=== PATIENT | female | born 1985 | race Caucasian/White ===

== ENCOUNTER 2016-12-20 08:33 | Emergency (ER) | payer OTHER ==
[2016-12-20 09:11] VITALS: BP 131/75
[2016-12-20] MEDS ORDERED: HYDR-971 PO (09:16)
[2016-12-20] MEDS ORDERED: CLIN150C14 PO (09:16)
[2016-12-20] MEDS ORDERED: NAPR500T8 PO (09:16)
--- NOTE | 2016-12-20 09:17 | PHYS DOC ---
Past Medical History Past Medical History: No Pertinent History Past Surgical History: Cholecystectomy Alcohol Use: None Drug Use: None Adult General Chief Complaint Chief Complaint: BREAST PROBLEM HPI HPI Patient is a 31 year old female with a history of breast infections who presents today complaining of right breast infection that began 2 weeks ago. Patient states she just had a baby 2 months ago and is not breast-feeding. Patient states she's had multiple right breast infections before. She states she had an infection to the right breast before she was , during her , and right now 2 months after delivery. She states she used to follow- up with her primary care doctor in [place] but now lives in the [facility] and does not have a PCP. Patient denies any fever. Denies any drainage from the breast. Patient states her mother has history of breast cancer. She states that mother was treated successfully for breast cancer. The mother from "other things." Review of Systems Review of Systems Constitutional: Denies fever or chills [] Musculoskeletal: Denies back pain or joint pain [] Integument: Right breast infection Neurologic: Denies headache, focal weakness or sensory changes [] Allergies Allergies Allergies Coded Allergies Type Severity Reaction Last Updated Verified iodine Allergy Intermediate 03/29/15 Yes morphine Allergy Intermediate Hives 03/29/15 Yes Physical Exam Physical Exam Constitutional: Well developed, well nourished, no acute distress, non-toxic appearance. [] Skin: Both breasts are equal in size, right breast feels tender around the areola. There is a palpable mass around the right areola at approximately 12 o' clock position. This redness around the right areola. The breast feels warm and is very tender to the touch, no fluctuance. No nipple drainage. Back: No tenderness, no CVA tenderness. [] Extremities: No tenderness, no cyanosis, no clubbing, ROM intact, no edema. [] Neurologic: Alert and oriented X 3, normal motor function, normal sensory function, no focal deficits noted. [] Psychologic: Affect normal, judgement normal, mood normal. [] EKG EKG [] Radiology/Procedures Radiology/Procedures [] Course & Med Decision Making Course & Med Decision Making Pertinent Labs and Imaging studies reviewed. (See chart for details) Patient is in the ED with right breast infection that began 2 weeks ago, she just had a baby 2 months ago and is not breast-feeding. She states she's had multiple breast infections prior to her , during and now. She is from [place]. Patient was started on clindamycin, tetanus is up to date. She was provided instructions to apply warm compresses to her breast. Patient was provided an OB/ [facility] as well as a general surgeon for follow-up with. I provided a list of doctors for follow-up. She is provided return precautions and discharged in stable condition. Dragon Disclaimer Dragon Disclaimer This electronic medical record was generated, in whole or in part, using a voice recognition dictation system. Departure Departure Impression: Primary Impression: Infection of right breast Disposition: HOME, SELF-CARE Condition: STABLE Referrals: NO PCP (PCP) GA WRIGHT MD follow up in one week HEMAL HORN MD follow in one week Patient Instructions: Mastitis, [id number] Additional Instructions: You were seen with right breast infection. Apply warm compresses 3 times to the breast. Complete the prescribed antibiotics. Follow-up with the [facility] provided if you don't have one as well as a general surgeon provided. We also provided you a list of primary care doctors establish care with them and follow-up in the next 7 days. Scripts Naproxen (NAPROXEN) 500 Mg Tablet. 1 TAB PO BID, #30 TAB 0 Refills Prov: PEDRO GROVE APRN 12/20/16 Hydrocodone/Apap 5-325 (NORCO 5-325 TABLET) 1 Each Tablet 1-2 TAB PO Q4-6HRS, #20 TAB Prov: PEDRO GROVE APRN 12/20/16 Clindamycin Hcl (CLINDAMYCIN HCL) 150 Mg Capsule 3 CAP PO TID, #90 CAP Prov: PEDRO GROVE APRN 12/20/16 PEDRO GROVE APRN Dec 20, 2016 09:16
== END 2016-12-20 09:30 | disposition home or self-care (01) ==
LOC: ER 08:33
DX: N61.0 Mastitis without abscess (principal); Z88.5 Allergy status to narcotic agent; Z91.041 Radiographic dye allergy status
CPT/HCPCS: 99283

== ENCOUNTER 2017-04-06 18:36 | Inpatient (IN) | payer OTHER ==
[2017-04-06 18:51] LABS: URINE HCG POC HCG POSITIVE (Negative)
[2017-04-06 19:13] LABS: BILIRUBIN,URINE NEGATIVE (NEG); CLARITY,URINE CLEAR; COLOR,URINE YELLOW; GLUCOSE,URINE NEGATIVE (NEG); NITRITE,URINE NEGATIVE (NEG); PH,URINE 5.5; PROTEIN,URINE NEGATIVE (NEG-TRACE)
[2017-04-06 19:19] LABS: BACTERIA,URINE MODERATE /HPF (0-FEW); RBC,URINE 0 /HPF (0-2); SQUAMOUS EPITHELIAL CELL,UR MANY /LPF
[2017-04-06 19:32] LABS: ADD MAN DIFF? NO
[2017-04-06 19:33] LABS: BASO % 0 % (0-3); EOS # 0.1 x10^3/uL (0.0-0.7); EOS % 1 % (0-3); HEMATOCRIT 41.6 % (36.0-47.0); LYMPH # 4.3 x10^3/uL (1.0-4.8); LYMPH % 31 % (24-48); MEAN CORPUSCULAR HEMOGLOBIN 33 pg (25-35); MEAN CORPUSCULAR HGB CONC 34 g/dL (31-37); MEAN CORPUSCULAR VOLUME 99 fL (79-100); MONO % 7 % (0-9); NEUT # 8.6 x10^3uL (1.8-7.7); NEUT % 61 % (31-73); PLATELET COUNT 297 x10^3/uL (140-400); RED CELL DISTRIBUTION WIDTH 13.7 % (11.5-14.5); WHITE BLOOD COUNT 14.1 x10^3/uL (4.0-11.0)
[2017-04-06 19:46] LABS: ANION GAP 13 (6-14); BLOOD UREA NITROGEN 17 mg/dL (7-20); BUN/CREATININE RATIO 21 (6-20); CALCIUM 9.1 mg/dL (8.5-10.1); CARBON DIOXIDE 25 mmol/L (21-32); CHLORIDE 103 mmol/L (98-107); CREATININE 0.8 mg/dL (0.6-1.0); GFR 84.8; GLUCOSE 88 mg/dL (70-99); POTASSIUM 3.7 mmol/L (3.5-5.1); SODIUM 141 mmol/L (136-145)
[2017-04-06 19:53] LABS: ALBUMIN 4.1 g/dL (3.4-5.0); ALBUMIN/GLOBULIN RATIO 1.4 (1.0-1.7); ALK PHOS 45 U/L (46-116); ALT (SGPT) 59 U/L (14-59); AST (SGOT) 32 U/L (15-37); TOTAL BILIRUBIN 0.3 mg/dL (0.2-1.0); TOTAL PROTEIN 7.1 g/dL (6.4-8.2)
[2017-04-06] MEDS ORDERED: ONDANSETRON PF 4 MG/2 ML VIAL. IV (21:00)
[2017-04-06] MEDS ORDERED: fentaNYL PF VIAL 100 MCG/2 ML VIAL IV (21:00)
[2017-04-06] MEDS: IV NORMAL SALINE 1000ML BAG 1,000 ML IV (21:04)
[2017-04-07 04:59] LABS: ADD MAN DIFF? NO
[2017-04-07 05:05] LABS: BASO % 0 % (0-3); EOS # 0.1 x10^3/uL (0.0-0.7); EOS % 1 % (0-3); HEMATOCRIT 38.5 % (36.0-47.0); HEMOGLOBIN 12.9 g/dL (12.0-15.5); LYMPH # 3.8 x10^3/uL (1.0-4.8); LYMPH % 42 % (24-48); MEAN CORPUSCULAR HEMOGLOBIN 33 pg (25-35); MEAN CORPUSCULAR HGB CONC 33 g/dL (31-37); MEAN CORPUSCULAR VOLUME 100 fL (79-100); MONO # 0.7 x10^3/uL (0.0-1.1); MONO % 8 % (0-9); NEUT # 4.5 x10^3uL (1.8-7.7); NEUT % 49 % (31-73); PLATELET COUNT 265 x10^3/uL (140-400); RED BLOOD COUNT 3.85 x10^6/uL (3.50-5.40); RED CELL DISTRIBUTION WIDTH 13.7 % (11.5-14.5); WHITE BLOOD COUNT 9.1 x10^3/uL (4.0-11.0)
[2017-04-07] MEDS: IV NORMAL SALINE 1000ML BAG 1,000 ML IV (05:11)
[2017-04-07 05:27] LABS: ANION GAP 11 (6-14); BLOOD UREA NITROGEN 14 mg/dL (7-20); CARBON DIOXIDE 23 mmol/L (21-32); CHLORIDE 108 mmol/L (98-107); CREATININE 0.7 mg/dL (0.6-1.0); GFR 98.9; GLUCOSE 91 mg/dL (70-99); SODIUM 142 mmol/L (136-145)
== END 2017-04-07 10:05 | disposition home or self-care (01) | DRG 781 ==
LOC: ER 18:36 → 3 NORTH 22:09
DX: O23.41 Unspecified infection of urinary tract in pregnancy, first trimester (principal); O99.111 Other diseases of the blood and blood-forming organs and certain disorders involving the immune mechanism complicating pregnancy, first trimester; D72.829 Elevated white blood cell count, unspecified; Z3A.14 14 weeks gestation of pregnancy
CPT/HCPCS: 36415; 76801; 76817; 80048; 80053; 81001; 81025; 84702; 85025; 87086; 96365; 99285-25; J0690; J7030

== ENCOUNTER 2018-01-26 12:58 | Emergency (ER) | payer MEDICAID, OTHER ==
[~2018-01-26] VITALS: Ht 157.5 cm; Wt 74.8 kg
[~2018-01-26 12:58] MED LIST: CLIN150C14 PO; HYDR-3164 PO; NAPR500T8 PO
[2018-01-26 13:50] VITALS: BP 145/64
--- NOTE | 2018-01-26 14:18 | PHYS DOC ---
Past Medical History Past Medical History: No Pertinent History Past Surgical History: Cholecystectomy Alcohol Use: None Drug Use: None Adult General Chief Complaint Chief Complaint: ABDOMINAL PAIN IN HPI HPI 32-year-old female presents to ER for complaints of left lower back pain. Patient reports she had similar discomfort last week but not as intense. Patient reports today at work she was lifting boxes when pain increased and radiated around to lt lower abd. she reports she is 11 weeks with due date of 08/19/17. Patient reports she is 12 or 13 para 3 with multiple miscarriages. Patient reports she has had some dysuria denying any urinary symptoms. Patient denies fever or chills, nausea or vomiting, or vaginal bleeding/discharge. She denies any pelvic pain or pressure. LMP 11/05/17. Patient denies calling her [facility] doctor to discuss sxs or concerns. Review of Systems Review of Systems Constitutional: Denies fever or chills [] Respiratory: Denies cough or shortness of breath [] Cardiovascular: Denies CP/palpitations GI: Denies nausea, vomiting, bloody stools or diarrhea. Reports lt lower abd pain : Denies hematuria/incontinence. Reports dysuria. Denies vaginal bleeding/ discharge or pelvic pain/pressure Musculoskeletal: Denies joint pain. Reports lt lower back pain radiating into lt side/lower lt abd Integument: Denies rash, swelling or skin lesions [] Neurologic: Denies headache, focal weakness or sensory changes [] All other systems were reviewed and found to be within normal limits, except as documented in this note. Allergies Allergies Allergies Coded Allergies Type Severity Reaction Last Updated Verified iodine Allergy Intermediate 03/29/15 Yes morphine Allergy Intermediate Hives 03/29/15 Yes Physical Exam Physical Exam Constitutional: Well developed, well nourished, no acute distress, non-toxic appearance. [] HENT: Normocephalic, atraumatic, oropharynx moist, no oral exudates, nose normal. [] Eyes: pupils equal, conjunctiva normal, no discharge. [] Neck: Normal range of motion, no tenderness, supple Cardiovascular:Heart rate regular rhythm, no murmur [] Lungs & Thorax: Bilateral breath sounds clear to auscultation. Resp. equal/ nonlabored Abdomen: Bowel sounds normal, soft/no rigidity, tender to palp. lt flank into lt side and lt lower abd, no masses, no pulsatile masses. [] Skin: Warm, dry, no erythema, no rash. [] Back: No tenderness, no CVA tenderness. [] Extremities: No tenderness, no cyanosis, no clubbing, ROM intact, no edema. [] Neurologic: Alert and oriented X 3, normal motor function, normal sensory function, no focal deficits noted. [] Psychologic: Affect normal, judgement normal, mood normal. Denies SI- does report some anxiety with Current Patient Data Vital Signs Vital Signs Date Time Temp Pulse Resp B/P (MAP) Pulse Ox O2 Delivery O2 Flow Rate FiO2 01/26/18 13:50 98.8 86 18 145/64 (91) 95 Room Air 98.8 Lab Values Laboratory Tests Test 01/26/18 13:33 01/26/18 13:50 Urine Collection Type Clean catch Urine Color Yellow Urine Clarity Clear Urine pH 7.5 Urine Specific [place] 1.020 Urine Protein Negative mg/dL (NEG-TRACE) Urine Glucose (UA) Negative mg/dL (NEG) Urine Ketones (Stick) Negative mg/dL (NEG) Urine Blood Negative (NEG) Urine Nitrite Negative (NEG) Urine Bilirubin Negative (NEG) Urine Urobilinogen Dipstick 0.2 mg/dL (0.2 mg/dL) Urine Leukocyte Esterase Negative (NEG) Urine RBC Occ /HPF (0-2) Urine WBC 1-4 /HPF (0-4) Urine Squamous Epithelial Cells Mod /LPF Urine Bacteria Few /HPF (0-FEW) Urine Mucus Mod /LPF POC Urine HCG, Qualitative Hcg positive (Negative) EKG EKG [] Radiology/Procedures Radiology/Procedures PROCEDURE: OB < 14 WKS Early OB ultrasound History: Left lower back pain radiating to the left lower abdomen. 11 weeks Comparison: None this . Technique: Transabdominal imaging was performed. Findings: Uterus measures 11.1 cm in length. Single live intrauterine is identified with gestational sac and embryo seen. Mean crown-rump length is 4.28 cm corresponding to 11 weeks 1 day. Estimated date of delivery is August 16, 2018. Embryonic heart motion is 149 bpm. Gestational sac appears regular. No subchorionic hemorrhage is identified. Anterior uterine wall demonstrates hypoechoic thickening measuring 5.3 cm maximum dimension. This could represent leiomyoma versus a contraction. Left ovary measures 2.3 x 3.6 x 2.3 cm and is unremarkable right ovary is not seen. Left ovary demonstrates normal vascular flow upon Doppler interrogation and is without evidence of torsion. Impression: 1. Single live intrauterine . Average ultrasound age is 11 weeks 1 day. Estimated date of delivery is August 16, 2018. 2. Anterior uterus demonstrates leiomyoma versus contraction. Electronically signed by: Gilberto Krishna MD (01/26/2018 3:15 PM) [facility] DICTATED and SIGNED BY: GILBERTO KRISHNA MD DATE: 01/26/18 1508 Course & Med Decision Making Course & Med Decision Making Pertinent Labs and Imaging studies reviewed. (See chart for details) 1528: Discussed UA results with no findings for infection- bacteria on micro. Discussed US results and copy provided to pt for f/u with [facility]- with FHR 149 and 11 wk 1 day gestation. Pt reports her sxs have improved since arriving to the ER. Pt's VS have been stable. Patient continues to deny any vaginal bleeding or pelvic pressure/pain. Patient was offered dose of Tylenol while in the ER preferred to have no medications. It was provided to left lower back and patient reports that improved her symptoms. Discussed plans for patient to follow-up with her [facility] and 1-2 days for reevaluation and to discuss symptoms. Pt is in no distress during this discussion and reports she feels comfortable with home discharge plan as discussed. Pt's case and test results were discussed with Dr. Tejeda. Ezequiel Disclaimer Ezequiel Disclaimer This electronic medical record was generated, in whole or in part, using a voice recognition dictation system. Departure Departure Impression: Primary Impression: Back pain during in first trimester Additional Impression: Abdominal pain during in first trimester Disposition: 01 HOME, SELF-CARE Condition: STABLE Referrals: NO PCP (PCP) Patient Instructions: Abdominal Pain During , Back Pain in Additional Instructions: Drink plenty of water. No as directed on container if needed for pain. Stop smoking. Follow-up with your [facility] doctor in next 1-2 days-sooner with any concerns. Problem Qualifiers ZAIDA OTERO APRN Jan 26, 2018 14:18
[2018-01-26 14:20] LABS: BILIRUBIN,URINE NEGATIVE (NEG); CLARITY,URINE CLEAR; COLOR,URINE YELLOW; NITRITE,URINE NEGATIVE (NEG); PH,URINE 7.5; PROTEIN,URINE NEGATIVE (NEG-TRACE); UROBILINOGEN,URINE 0.2 mg/dL (0.2 mg/dL)
[2018-01-26 14:29] LABS: BACTERIA,URINE FEW /HPF (0-FEW); RBC,URINE OCC /HPF (0-2); SQUAMOUS EPITHELIAL CELL,UR MOD /LPF
--- NOTE | 2018-01-26 15:19 | RAD ---
Early OB ultrasound History: Left lower back pain radiating to the left lower abdomen. 11 weeks Comparison: None this . Technique: Transabdominal imaging was performed. Findings: Uterus measures 11.1 cm in length. Single live intrauterine is identified with gestational sac and embryo seen. Mean crown-rump length is 4.28 cm corresponding to 11 weeks 1 day. Estimated date of delivery is August 16, 2018. Embryonic heart motion is 149 bpm. Gestational sac appears regular. No subchorionic hemorrhage is identified. Anterior uterine wall demonstrates hypoechoic thickening measuring 5.3 cm maximum dimension. This could represent leiomyoma versus a contraction. Left ovary measures 2.3 x 3.6 x 2.3 cm and is unremarkable right ovary is not seen. Left ovary demonstrates normal vascular flow upon Doppler interrogation and is without evidence of torsion. Impression: 1. Single live intrauterine . Average ultrasound age is 11 weeks 1 day. Estimated date of delivery is August 16, 2018. 2. Anterior uterus demonstrates leiomyoma versus contraction. Electronically signed by: Scar Krishna MD (01/26/2018 3:15 PM) [facility]
== END 2018-01-26 15:55 | disposition home or self-care (01) ==
LOC: ER 12:58
DX: O99.89 Other specified diseases and conditions complicating pregnancy, childbirth and the puerperium (principal); M54.5 Low back pain; R30.0 Dysuria; R10.32 Left lower quadrant pain; Z91.041 Radiographic dye allergy status; Z90.49 Acquired absence of other specified parts of digestive tract; Z88.5 Allergy status to narcotic agent; Z3A.11 11 weeks gestation of pregnancy
CPT/HCPCS: 76801; 81001; 81025; 99285-25

== ENCOUNTER 2018-06-21 13:46 | Observation (INO) | payer OTHER ==
[2018-06-21] MEDS ORDERED: IV RINGERS,LACTATED 1000ML 1,000 ML IV PRN (14:00)
[2018-06-21] MEDS ORDERED: TERBUTALINE 1 MG/ML VIAL. SQ PRN (14:00)
[2018-06-21] MEDS ORDERED: BETAMET ACET&NA PHOS 30 MG/5 ML VIAL. IM SCH (14:30)
[2018-06-21 14:37] LABS: BILIRUBIN,URINE SMALL (NEG); CLARITY,URINE CLOUDY; COLOR,URINE AMBER; NITRITE,URINE NEGATIVE (NEG); PROTEIN,URINE NEGATIVE (NEG-TRACE)
[2018-06-21 14:44] LABS: BARBITURATES NEG (NEG); BENZODIAZEPINES NEG (NEG); CANNABINOIDS NEG (NEG); COCAINE NEG (NEG); METHADONE NEG (NEG); OPIATES NEG (NEG); PHENCYCLIDINE NEG (NEG)
[2018-06-21 14:49] LABS: AMPHETAMINE/METHAMPHETAMINE NEG (NEG); BACTERIA,URINE FEW /HPF (0-FEW); RBC,URINE OCC /HPF (0-2); SQUAMOUS EPITHELIAL CELL,UR MANY /LPF
[2018-06-21 16:35] LABS: INFLUENZA A PATIENT NEGATIVE (NEGATIVE); INFLUENZA B PATIENT NEGATIVE (NEGATIVE)
== END 2018-06-21 17:16 | disposition home or self-care (01) ==
LOC: 3 SO LND 13:46
PROVIDERS: ADMIT Obstetrics & Gynecology; ATTEND Obstetrics & Gynecology
DX: O26.812 Pregnancy related exhaustion and fatigue, second trimester (principal); O62.9 Abnormality of forces of labor, unspecified; O26.852 Spotting complicating pregnancy, second trimester; O26.892 Other specified pregnancy related conditions, second trimester; R05 Cough; Z3A.00 Weeks of gestation of pregnancy not specified
CPT/HCPCS: 80307; 81001; 87804; G0378; G0379; 87086; 87186

== ENCOUNTER 2018-10-12 10:20 | Emergency (ER) | payer OTHER ==
[~2018-10-12] VITALS: Ht 157.5 cm; Wt 86.2 kg
[2018-10-12 11:27] VITALS: BP 117/75
--- NOTE | 2018-10-12 12:18 | PHYS DOC ---
Past Medical History Past Medical History: No Pertinent History Past Surgical History: Cholecystectomy Alcohol Use: Occasionally Drug Use: None Adult General Chief Complaint Chief Complaint: SHOULDER INJURY [facility] HPI Patient is a 33 year old female presents to the ED complaining of left shoulder injury times one day ago. States she fell down a few stairs last night. States she fell on her left shoulder. Describes the pain as sharp. Rates the pain as 6 out of 10. Patient has pain with range of motion. Denies head/neck injury, LOC, vision changes, nausea/vomiting, dizziness, weakness, use of blood thinners, symptoms prior to fall, chest pain or shortness of breath. Review of Systems Review of Systems Constitutional: Denies fever or chills [] Eyes: Denies change in visual acuity, redness, or eye pain [] HENT: Denies nasal congestion or sore throat [] Respiratory: Denies cough or shortness of breath [] Cardiovascular: No additional information not addressed in HPI [] GI: Denies abdominal pain, nausea, vomiting, bloody stools or diarrhea [] : Denies dysuria or hematuria [] Musculoskeletal: Complains of shoulder pain. Denies back pain. [] Integument: Denies rash or skin lesions [] Neurologic: Denies headache, focal weakness or sensory changes [] All other systems were reviewed and found to be within normal limits, except as documented in this note. Allergies Allergies Allergies Coded Allergies Type Severity Reaction Last Updated Verified iodine Allergy Intermediate 03/29/15 Yes morphine Allergy Intermediate Hives 03/29/15 Yes Physical Exam Physical Exam Constitutional: Well developed, well nourished, no acute distress, non-toxic appearance. [] HENT: Normocephalic, atraumatic Eyes: PERRLA, EOMI, conjunctiva normal, no discharge. [] Neck: Normal range of motion, no tenderness, supple, no stridor. [] Cardiovascular:Heart rate regular rhythm, no murmur [] Lungs & Thorax: Bilateral breath sounds clear to auscultation [] Skin: Warm, dry, no erythema, no rash. [] Back: No tenderness, no CVA tenderness. [] Extremities: Complains of left shoulder tenderness, negative empty can, speeds and yergesons. no cyanosis, no clubbing, ROM intact, no edema. [] Neurologic: Alert and oriented X 3, normal motor function, normal sensory function, no focal deficits noted. [] Psychologic: Affect normal, judgement normal, mood normal. [] Current Patient Data Vital Signs Vital Signs Date Time Temp Pulse Resp B/P (MAP) Pulse Ox O2 Delivery O2 Flow Rate FiO2 10/12/18 11:27 98.6 87 18 117/75 (89) 97 Room Air 98.6 EKG EKG [] Radiology/Procedures Radiology/Procedures []PROCEDURE: HUMERUS LEFT Examination: 2 views of the left humerus and left shoulder HISTORY: History of injury, fall COMPARISON: None available. Findings/ impression: The humerus head is within the glenoid. There is no acute fracture dislocation identified. No acute fracture of the humerus identified. There is linear density projecting medial to the mid humerus, uncertain, could be a foreign body or external to the patient. Correlate clinically. Course & Med Decision Making Course & Med Decision Making Pertinent Labs and Imaging studies reviewed. (See chart for details) []Discussed imaging findings with patient. Patient's pain improved in the ED. Sling placed. Neurovascular intact post placement. Discussed follow-up with orthopedics outpatient if pain persists. Provided contact information/education. Discussed reasons to return to the ED. Patient understands and agrees with plan. Dragon Disclaimer Dragon Disclaimer This electronic medical record was generated, in whole or in part, using a voice recognition dictation system. Departure Departure Impression: Primary Impression: Shoulder sprain Disposition: 01 HOME, SELF-CARE Condition: STABLE Referrals: NO PCP (PCP) SEEMA TAMAYO MD Patient Instructions: Shoulder Sprain Scripts Tramadol Hcl (TRAMADOL HCL) 50 Mg Tablet 50 MG PO Q4HRS PRN for PAIN, #10 TAB Prov: BRANDI HAMM 10/12/18 BRANDI HAMM Oct 12, 2018 12:18
--- NOTE | 2018-10-12 12:25 | RAD ---
Examination: 2 views of the left humerus and left shoulder HISTORY: History of injury, fall COMPARISON: None available. Findings/ impression: The humerus head is within the glenoid. There is no acute fracture dislocation identified. No acute fracture of the humerus identified. There is linear density projecting medial to the mid humerus, uncertain, could be a foreign body or external to the patient. Correlate clinically. Electronically signed by: Connor Gifford MD (10/12/2018 12:22 PM) [id number]
[2018-10-12] MEDS ORDERED: TRAM50TA PO (12:43)
== END 2018-10-12 12:56 | disposition home or self-care (01) ==
LOC: ER 10:20
DX: S43.492A Other sprain of left shoulder joint, initial encounter (principal); Z90.49 Acquired absence of other specified parts of digestive tract; Z88.5 Allergy status to narcotic agent; Z91.041 Radiographic dye allergy status; W10.9XXA Fall (on) (from) unspecified stairs and steps, initial encounter; Y93.89 Activity, other specified; Y92.89 Other specified places as the place of occurrence of the external cause; Y99.8 Other external cause status
CPT/HCPCS: 73030; 73060; 99284